=== PATIENT | female | born 1950 | race Caucasian/White ===

== ENCOUNTER 2019-04-26 12:33 | Emergency (ER) | payer MEDICARE, OTHER ==
[~2019-04-26] VITALS: Ht 157.5 cm; Wt 82.6 kg
--- NOTE | 2019-04-26 13:35 | NUR ---
Patient discharged to home in stable conditon. Written and verbal after care instructions given. Patient verbalizes understanding of instructions.
== END 2019-04-26 13:50 | disposition home or self-care (01) ==
LOC: ER 12:33
DX: M79.641 Pain in right hand (principal); M79.642 Pain in left hand; M25.562 Pain in left knee
CPT/HCPCS: A4663